=== PATIENT | female | born 1955 | race Caucasian/White ===

== ENCOUNTER 2019-11-23 20:02 | Emergency (ER) | payer SELFPAY ==
[~2019-11-23] VITALS: Ht 170.2 cm; Wt 83.9 kg
--- NOTE | 2019-11-23 20:03 | NUR ---
PT YENI ANDRADE. TAKEN TO BED 11
[2019-11-23 20:05] VITALS: BP 174/102
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
--- NOTE | 2019-11-23 20:20 | NUR ---
PT TAKEN TO CT VIA WHEELCHAIR
--- NOTE | 2019-11-23 20:28 | NUR ---
PT RETURN FROM CT
[2019-11-23] MEDS ORDERED: KETOROLAC 60 MG/2 ML VIAL IM ONE (20:50)
[2019-11-23] MEDS ORDERED: ONDANSETRON 4 MG ODT PO ONE (20:50)
[2019-11-23] MEDS ORDERED: AMOXIL/CLAVULANATE 500/125 MG 1 TAB PO ONE (21:50)
[2019-11-23 22:19] VITALS: BP 158/90
--- NOTE | 2019-11-23 22:19 | NUR ---
Patient discharged with v/s stable. Written and verbal after care instructions given and explained. Patient alert, oriented and verbalized understanding of instructions. Ambulatory with steady gait. All questions addressed prior to discharge. ID band removed. Patient advised to follow up with PMD. Rx of AUGMENTIN, MOTRIN given. Patient educated on indication of medication including possible reaction and side effects. Opportunity to ask questions provided and answered.
== END 2019-11-23 22:19 ==
LOC: MED 20:02
DX: S02.40CB Maxillary fracture, right side, initial encounter for open fracture (principal); Z02.89 Encounter for other administrative examinations; Y04.0XXA Assault by unarmed brawl or fight, initial encounter; Y93.89 Activity, other specified; Y92.89 Other specified places as the place of occurrence of the external cause; Y99.8 Other external cause status
CPT/HCPCS: 70486; 90471; 90715; 96372; 99284; J1885; Q0162